=== PATIENT | male | born 1970 | race Caucasian/White ===

== ENCOUNTER 2020-11-23 18:20 | Inpatient (IN) | payer OTHER ==
[2020-11-23 18:43] VITALS: BMI 26.2
[2020-11-23] MEDS ORDERED: MAGNESIUM HYDROX 2400MG/30ML ORAL SUSPENSION 30 ML CUP PO PRN (19:26)
[2020-11-23] MEDS ORDERED: METHOCARBAMOL 500 MG TABLET PO PRN (19:26)
[2020-11-23] MEDS ORDERED: IBUPROFEN 400 MG TABLET (FP) PO PRN (19:26)
[2020-11-23] MEDS ORDERED: LORazepam 1 MG TABLET PO PRN (19:26)
[2020-11-23] MEDS ORDERED: MAGNESIUM CITRATE 300 ML BOTTLE PO PRN (19:26)
[2020-11-23] MEDS ORDERED: ONDANSETRON *ODT* 4 MG TABLET SL PRN (19:26)
[2020-11-23] MEDS ORDERED: MAG HYDROX/AL HYDROX/SIMETH 30 ML UNIT-DOSE CUP PO PRN (19:26)
[2020-11-23] MEDS ORDERED: MENTHOL/PHENOL 1 EACH UD MM PRN (19:26)
[2020-11-23] MEDS ORDERED: BISMUTH SUBSALICYLATE 524 MG/30 ML UD PO PRN (19:26)
[2020-11-23] MEDS ORDERED: NICOTINE POLACRILEX 2 MG GUM BUC PRN (19:26)
[2020-11-23] MEDS ORDERED: ACETAMINOPHEN 325 MG TABLET (FP) PO PRN ×2 (19:26)
[2020-11-23] MEDS: hydrOXYzine PAMOATE 25 MG CAPSULE (FP) PO SCH (21:04)
[2020-11-23] MEDS: THIAMINE HCL 100 MG TABLET (FP) PO SCH (21:04)
[2020-11-23] MEDS: MELATONIN 5 MG TABLETS PO SCH (21:05)
[2020-11-23] MEDS: LORazepam 2 MG TABLET PO SCH (21:59)
[2020-11-24] MEDS: LORazepam 2 MG TABLET PO SCH ×4 (05:45→22:13)
[2020-11-24] MEDS: hydrOXYzine PAMOATE 25 MG CAPSULE (FP) PO SCH ×2 (05:46→10:10)
[2020-11-24] MEDS: PRENATAL VITAMINS W/ FOLIC ACID TABLET (FP) PO SCH (10:10)
[2020-11-24 11:35] LABS: PH,URINE 8.5 (5.0-8.0); URINE APPEARANCE CLEAR; URINE BILIRUBIN NEGATIVE (NEGATIVE); URINE COLOR YELLOW; URINE GLUCOSE (UA) NEGATIVE (NEGATIVE); URINE KETONE NEGATIVE (NEGATIVE); URINE LEUK ESTERASE NEGATIVE (NEGATIVE); URINE NITRITE NEGATIVE (NEGATIVE); URINE PROTEIN TRACE (NEGATIVE)
[2020-11-24 11:42] LABS: POTASSIUM 3.2 mmol/L (3.5-5.1)
[2020-11-24 11:48] LABS: ALBUMIN 3.5 g/dl (3.4-5.0)
[2020-11-24 11:50] LABS: HEMATOCRIT 38.4 % (35.4-49); HEMOGLOBIN 13.4 GM/dL (11.7-16.9); MCH 31.6 pg (25.7-33.7); MCHC 34.8 g/dl (32.0-35.9); MEAN CELL VOLUME 90.9 fl (80-96); PLATELET COUNT 148 K/MM3 (134-434); RBC 4.23 M/mm3 (4.00-5.60); RDW 14.7 % (11.9-15.9); WHITE BLOOD COUNT 7.1 K/mm3 (4.0-10.0)
[2020-11-24 11:51] LABS: CREATININE 0.7 mg/dL (0.55-1.3)
[2020-11-24 11:52] LABS: BILIRUBIN,TOTAL 1.3 mg/dL (0.2-1)
[2020-11-24 11:53] LABS: TOT PROT 6.8 g/dl (6.4-8.2)
[2020-11-24 12:33] LABS: HIV INTERPRETATION NEGATIVE (NEGATIVE)
[2020-11-24] MEDS: POTASSIUM CHLORIDE TABS 20 MEQ TABLET.ER (FP) PO SCH ×2 (15:32→17:43)
[2020-11-24] MEDS: MELATONIN 5 MG TABLETS PO SCH (22:12)
[2020-11-24] MEDS: QUEtiapine FUMARATE 100 MG TABLET (FP) PO SCH (22:13)
[2020-11-24] MEDS: THIAMINE HCL 100 MG TABLET (FP) PO SCH (22:13)
[2020-11-25] MEDS: LORazepam 1 MG TABLET PO SCH ×4 (05:48→22:04)
[2020-11-25] MEDS: FLUoxetine HCL 20 MG CAPSULE PO SCH (10:03)
[2020-11-25] MEDS: POTASSIUM CHLORIDE TABS 20 MEQ TABLET.ER (FP) PO SCH ×2 (10:03→17:15)
[2020-11-25] MEDS: PRENATAL VITAMINS W/ FOLIC ACID TABLET (FP) PO SCH (10:03)
[2020-11-25 10:15] LABS: BASO % 0.5 % (0-2.0); EOS % 2.7 % (0-4.5); HEMATOCRIT 39.9 % (35.4-49); HEMOGLOBIN 13.6 GM/dL (11.7-16.9); LYMPH % 23.4 % (8-40); MCH 31.3 pg (25.7-33.7); MEAN CELL VOLUME 92.1 fl (80-96); MEAN PLT VOLUME 8.9 fl (7.5-11.1); MONO % 5.9 % (3.8-10.2); NEUT % 67.5 % (42.8-82.8); PLATELET COUNT 159 K/MM3 (134-434); RBC 4.33 M/mm3 (4.00-5.60); RDW 14.6 % (11.9-15.9); WHITE BLOOD COUNT 8.2 K/mm3 (4.0-10.0)
[2020-11-25 10:26] LABS: POTASSIUM 3.5 mmol/L (3.5-5.1)
[2020-11-25 10:27] LABS: CALCIUM 9.3 mg/dL (8.5-10.1)
[2020-11-25 10:28] LABS: ALBUMIN 3.4 g/dl (3.4-5.0); BLOOD UREA NITROGEN 13.3 mg/dL (7-18)
[2020-11-25 10:31] LABS: CREATININE 0.7 mg/dL (0.55-1.3)
[2020-11-25 10:32] LABS: BILIRUBIN,TOTAL 0.8 mg/dL (0.2-1)
[2020-11-25 10:33] LABS: TOT PROT 6.8 g/dl (6.4-8.2)
[2020-11-25] MEDS: hydrOXYzine PAMOATE 25 MG CAPSULE (FP) PO PRN (17:17)
[2020-11-25] MEDS: MELATONIN 5 MG TABLETS PO SCH (22:04)
[2020-11-25] MEDS: THIAMINE HCL 100 MG TABLET (FP) PO SCH (22:04)
[2020-11-25] MEDS: QUEtiapine FUMARATE 100 MG TABLET (FP) PO SCH (22:04)
[2020-11-26] MEDS ORDERED: LORazepam 0.5 MG TABLET PO PRN
[2020-11-26] MEDS: LORazepam 0.5 MG TABLET PO SCH ×4 (05:34→22:10)
[2020-11-26] MEDS: hydrOXYzine PAMOATE 25 MG CAPSULE (FP) PO PRN ×3 (05:36→22:12)
[2020-11-26] MEDS: FLUoxetine HCL 20 MG CAPSULE PO SCH (10:04)
[2020-11-26] MEDS: PRENATAL VITAMINS W/ FOLIC ACID TABLET (FP) PO SCH (10:04)
[2020-11-26] MEDS: POTASSIUM CHLORIDE TABS 20 MEQ TABLET.ER (FP) PO SCH ×2 (10:04→17:20)
[2020-11-26] MEDS: MELATONIN 5 MG TABLETS PO SCH (22:09)
[2020-11-26] MEDS: THIAMINE HCL 100 MG TABLET (FP) PO SCH (22:09)
[2020-11-26] MEDS: QUEtiapine FUMARATE 100 MG TABLET (FP) PO SCH (22:09)
[2020-11-27] MEDS ORDERED: LORazepam 0.5 MG TABLET PO ONE (05:00)
[2020-11-27 06:39] VITALS: BP 113/71; PULSE 65; TEMP 97.7
[2020-11-27] MEDS: FLUoxetine HCL 20 MG CAPSULE PO SCH (09:03)
[2020-11-27] MEDS: PRENATAL VITAMINS W/ FOLIC ACID TABLET (FP) PO SCH (09:03)
[2020-11-27] MEDS: POTASSIUM CHLORIDE TABS 20 MEQ TABLET.ER (FP) PO SCH (09:03)
[2020-11-27] MEDS ORDERED: MASKS NR ONE (09:06)
== END 2020-11-27 09:08 | disposition home or self-care (01) | DRG 775 ==
LOC: YASAS 18:20 → Y3N 19:29
PROVIDERS: ADMIT Allergy & Immunology; ATTEND Allergy & Immunology
PROC: HZ2ZZZZ Detoxification Services for Substance Abuse Treatment (ICD-10-PCS; principal; 2020-11-23)
DX: F10.230 Alcohol dependence with withdrawal, uncomplicated (principal); F10.220 Alcohol dependence with intoxication, uncomplicated; F17.210 Nicotine dependence, cigarettes, uncomplicated; F19.24 Other psychoactive substance dependence with psychoactive substance-induced mood disorder; F41.9 Anxiety disorder, unspecified; F32.9 Major depressive disorder, single episode, unspecified; G47.00 Insomnia, unspecified; E78.5 Hyperlipidemia, unspecified; E87.6 Hypokalemia; K21.9 Gastro-esophageal reflux disease without esophagitis; R74.01 Elevation of levels of liver transaminase levels; Z98.890 Other specified postprocedural states; Z91.19 Patient's noncompliance with other medical treatment and regimen; Z56.0 Unemployment, unspecified
CPT/HCPCS: 36415; 80053; 81003; 85025; 85027; 86780; 87389; 93005; 93010; C9803; U0003; U0005

== ENCOUNTER 2021-02-02 17:54 | Inpatient (IN) | payer OTHER ==
[2021-02-02] MEDS ORDERED: MAGNESIUM CITRATE 300 ML BOTTLE PO PRN (22:25)
[2021-02-02] MEDS ORDERED: METHOCARBAMOL 500 MG TABLET PO PRN (22:25)
[2021-02-02] MEDS ORDERED: MAGNESIUM HYDROX 2400MG/30ML ORAL SUSPENSION 30 ML CUP PO PRN (22:25)
[2021-02-02] MEDS ORDERED: ONDANSETRON *ODT* 4 MG TABLET SL PRN (22:25)
[2021-02-02] MEDS ORDERED: MENTHOL/PHENOL 1 EACH UD MM PRN (22:25)
[2021-02-02] MEDS ORDERED: MAG HYDROX/AL HYDROX/SIMETH 30 ML UNIT-DOSE CUP PO PRN (22:25)
[2021-02-02] MEDS ORDERED: IBUPROFEN 400 MG TABLET (FP) PO PRN (22:25)
[2021-02-02] MEDS ORDERED: hydrOXYzine PAMOATE 25 MG CAPSULE (FP) PO PRN (22:25)
[2021-02-02] MEDS ORDERED: BISMUTH SUBSALICYLATE 524 MG/30 ML PO PRN (22:25)
[2021-02-02] MEDS ORDERED: ACETAMINOPHEN 325 MG TABLET (FP) PO PRN ×2 (22:25)
[2021-02-02 23:12] VITALS: BMI 25.1
[2021-02-03] MEDS ORDERED: LORazepam 2 MG TABLET PO ONE (00:22)
[2021-02-03] MEDS: LORazepam 2 MG TABLET PO SCH ×4 (05:46→22:31)
[2021-02-03] MEDS: LORazepam 1 MG TABLET PO PRN (08:01)
[2021-02-03] MEDS: PRENATAL VITAMINS W/ FOLIC ACID TABLET (FP) PO SCH (11:11)
[2021-02-03 11:32] LABS: HEMATOCRIT 36.5 % (35.4-49); HEMOGLOBIN 12.5 GM/dL (11.7-16.9); MCH 31.4 pg (25.7-33.7); MCHC 34.2 g/dl (32.0-35.9); MEAN CELL VOLUME 91.9 fl (80-96); MEAN PLT VOLUME 8.3 fl (7.5-11.1); PLATELET COUNT 112 K/MM3 (134-434); RBC 3.98 M/mm3 (4.00-5.60); WHITE BLOOD COUNT 5.2 K/mm3 (4.0-10.0)
[2021-02-03 11:35] LABS: ALBUMIN 3.5 g/dl (3.4-5.0); BLOOD UREA NITROGEN 8.1 mg/dL (7-18)
[2021-02-03 11:38] LABS: CALCIUM 8.5 mg/dL (8.5-10.1); CREATININE 0.5 mg/dL (0.55-1.3)
[2021-02-03 11:40] LABS: BILIRUBIN,TOTAL 0.8 mg/dL (0.2-1); TOT PROT 6.5 g/dl (6.4-8.2)
[2021-02-03] MEDS ORDERED: POTASSIUM CHLORIDE ORAL LIQUID 20 MEQ/15 ML PO ONE (15:31)
[2021-02-03] MEDS: hydrOXYzine PAMOATE 50 MG CAPSULE (FP) PO PRN (17:53)
[2021-02-03] MEDS ORDERED: QUEtiapine FUMARATE 200 MG TABLET PO SCH (22:00)
[2021-02-03] MEDS: POTASSIUM CHLORIDE ORAL LIQUID 20 MEQ/15 ML PO SCH (22:31)
[2021-02-03] MEDS: THIAMINE HCL 100 MG TABLET (FP) PO SCH (22:31)
[2021-02-03] MEDS: MELATONIN 5 MG TABLETS PO SCH (22:31)
[2021-02-03] MEDS ORDERED: cloNIDine HCL 0.1 MG TABLET PO ONE (23:37)
[2021-02-03] MEDS ORDERED: LORazepam 2 MG/ML SDV VIAL IVPUSH ONE (23:40)
[2021-02-03] MEDS ORDERED: LORazepam 2 MG/ML SDV VIAL IM ONE (23:40)
[2021-02-04] MEDS: LORazepam 1 MG TABLET PO PRN (02:43)
[2021-02-04] MEDS: hydrOXYzine PAMOATE 50 MG CAPSULE (FP) PO PRN (02:47)
[2021-02-04] MEDS: LORazepam 1 MG TABLET PO SCH ×4 (06:35→22:16)
[2021-02-04] MEDS ORDERED: FLUoxetine HCL 20 MG CAPSULE PO SCH (10:00)
[2021-02-04] MEDS: POTASSIUM CHLORIDE ORAL LIQUID 20 MEQ/15 ML PO SCH ×2 (10:38→22:15)
[2021-02-04] MEDS: PRENATAL VITAMINS W/ FOLIC ACID TABLET (FP) PO SCH (10:38)
[2021-02-04 11:12] LABS: INR 1.03 (0.83-1.09); PROTHROMBIN TIME (PATIENT) 12.7 SEC (9.7-13.0)
[2021-02-04 11:21] LABS: BLOOD UREA NITROGEN 15.5 mg/dL (7-18)
[2021-02-04 11:26] LABS: BILIRUBIN,TOTAL 0.5 mg/dL (0.2-1); TOT PROT 6.3 g/dl (6.4-8.2)
[2021-02-04 11:34] LABS: CALCIUM 10.5 mg/dL (8.5-10.1)
[2021-02-04] MEDS ORDERED: QUEtiapine FUMARATE 100 MG TABLET (FP) ONE (21:16)
[2021-02-04] MEDS: THIAMINE HCL 100 MG TABLET (FP) PO SCH (22:16)
[2021-02-04] MEDS: QUEtiapine FUMARATE 300 MG TABLET PO SCH (22:16)
[2021-02-04] MEDS: MELATONIN 5 MG TABLETS PO SCH (22:16)
[2021-02-05] MEDS ORDERED: LORazepam 0.5 MG TABLET PO PRN
[2021-02-05] MEDS: LORazepam 0.5 MG TABLET PO SCH ×4 (07:20→22:04)
[2021-02-05] MEDS: hydrOXYzine PAMOATE 50 MG CAPSULE (FP) PO PRN ×2 (07:24→14:14)
[2021-02-05] MEDS: PRENATAL VITAMINS W/ FOLIC ACID TABLET (FP) PO SCH (10:30)
[2021-02-05] MEDS: FLUoxetine HCL 20 MG CAPSULE PO SCH (10:30)
[2021-02-05] MEDS ORDERED: LACTULOSE 20 GM/30 ML UDC (FOR ORAL USE ONLY) PO ONE (11:15)
[2021-02-05] MEDS: LACTULOSE 20 GM/30 ML UDC (FOR ORAL USE ONLY) PO SCH ×3 (14:13→22:05)
[2021-02-05] MEDS ORDERED: QUEtiapine FUMARATE 100 MG TABLET (FP) ONE (20:55)
[2021-02-05] MEDS: QUEtiapine FUMARATE 300 MG TABLET PO SCH (22:04)
[2021-02-05] MEDS: MELATONIN 5 MG TABLETS PO SCH (22:04)
[2021-02-05] MEDS: THIAMINE HCL 100 MG TABLET (FP) PO SCH (22:04)
[2021-02-06] MEDS ORDERED: LORazepam 0.5 MG TABLET PO ONE (05:00)
[2021-02-06 06:23] VITALS: TEMP 96.8
[2021-02-06 09:01] VITALS: BP 126/76; PULSE 64
[2021-02-06] MEDS: PRENATAL VITAMINS W/ FOLIC ACID TABLET (FP) PO SCH (09:26)
[2021-02-06] MEDS: LACTULOSE 20 GM/30 ML UDC (FOR ORAL USE ONLY) PO SCH (09:26)
[2021-02-06] MEDS: FLUoxetine HCL 20 MG CAPSULE PO SCH (09:26)
== END 2021-02-06 09:29 | disposition home or self-care (01) | DRG 775 ==
LOC: YASAS 17:54 → Y3N 02-03 00:46
PROVIDERS: ADMIT Allergy & Immunology; ATTEND Allergy & Immunology
PROC: HZ2ZZZZ Detoxification Services for Substance Abuse Treatment (ICD-10-PCS; principal; 2021-02-03)
DX: F10.230 Alcohol dependence with withdrawal, uncomplicated (principal); F10.220 Alcohol dependence with intoxication, uncomplicated; F17.210 Nicotine dependence, cigarettes, uncomplicated; F19.24 Other psychoactive substance dependence with psychoactive substance-induced mood disorder; F32.9 Major depressive disorder, single episode, unspecified; F41.9 Anxiety disorder, unspecified; E87.6 Hypokalemia; G47.00 Insomnia, unspecified; K21.9 Gastro-esophageal reflux disease without esophagitis; R79.89 Other specified abnormal findings of blood chemistry; R25.1 Tremor, unspecified; R26.89 Other abnormalities of gait and mobility; Z91.19 Patient's noncompliance with other medical treatment and regimen
CPT/HCPCS: 36415; 80053; 82140; 85027; 85610; 86780; C9803; J0735; U0003; U0005